=== PATIENT | male | born 1980 | race Caucasian/White ===

== ENCOUNTER 2018-07-24 16:53 | Emergency (ER) | payer BC, OTHER ==
[2018-07-24 17:01] VITALS: BP 118/73
--- NOTE | 2018-07-24 18:00 | UC ---
Skin Complaint HPI - HPI Summary HPI Summary: While working at his [employer] house today his brother noticed a bull's-eye rash on his back. Came here to have it evaluated. No fever, headache, joint pain or muscle aches. [place] and has removed several ticks over the summer. - History of Current Complaint Chief Complaint: UCSkin Time Seen by Provider: 07/24/18 17:43 Stated Complaint: RASH Hx Obtained From: Patient Onset/Duration: Still Present Timing: Constant Onset Severity: Mild Current Severity: Mild Pain Intensity: 0 Pain Scale Used: 0-10 Numeric Location: Discrete - BACK Character: Redness Aggravating Factor(s): Nothing Alleviating Factor(s): Nothing Associated Signs & Symptoms: Positive: Rash. Negative: Nausea, Fever, Chills, Throat Tightening, Bruising, Tenderness, Red Streaks - Allergy/Home Medications Allergies/Adverse Reactions: Allergies Allergy/AdvReac Type Severity Reaction Status Date / Time No Known Allergies Allergy Verified 07/24/18 17:02 Review of Systems Constitutional: Negative Skin: Rash Respiratory: Negative Cardiovascular: Negative Gastrointestinal: Negative Musculoskeletal: Negative All Other Systems Reviewed And Are Negative: Yes PMH/Surg Hx/FS Hx/Imm Hx Previously Healthy: Yes - Surgical History Surgical History: None - Family History Known Family History: Negative: Hypertension - Social History Alcohol Use: Occasionally Substance Use Type: None Smoking Status (MU): Never Smoked Tobacco Physical Exam Triage Information Reviewed: Yes Appearance: Well-Appearing, No Pain Distress, Well-Nourished Vital Signs: Initial Vital Signs Temp 98.1 F 07/24/18 16:59 Pulse 97 07/24/18 16:59 Resp 12 07/24/18 16:59 BP 118/73 07/24/18 16:59 Pulse Ox 100 07/24/18 16:59 Vital Signs Reviewed: Yes Eyes: Positive: Conjunctiva Clear ENT: Positive: Hearing grossly normal Neck: Positive: Supple Respiratory: Positive: No respiratory distress, No accessory muscle use Cardiovascular: Positive: Pulses Normal Abdomen Description: Positive: Soft Musculoskeletal: Positive: No Edema Neurological: Positive: Alert Psychological: Positive: Age Appropriate Behavior Skin: Positive: rashes - 5 INCH DIAMETER TARGET LESION X 2 ON BACK. NON TENDER Course/Dx - Diagnoses Provider Diagnoses: ERYTHEMA MIGRANS Discharge - Sign-Out/Discharge Documenting (check all that apply): Patient Departure All imaging exams completed and their final reports reviewed: No Studies - Discharge Plan Condition: Stable Disposition: HOME Prescriptions: Doxycycline Monohydrate 1 cap PO BID #40 cap Patient Education Materials: Lyme Disease (ED) Referrals: Richardson JAIME,Isak Parker [Medical Doctor] - (FOLLOW-UP IN 3-4 WEEKS) Additional Instructions: LYME DISEASE: You are suspected of having Lyme disease. Further testing may be necessary to confirm the diagnosis. Lyme disease is an infection spread through the bite of a deer tick. Symptoms include rash, fever, fatigue, joint swelling, and aches. Lyme disease can be treated with antibiotics. It is important that you take the entire course of medication. Call the physician if you develop severe headache, stiff neck, paralysis or "drooping" of either side of the face, or a worsening of any other symptom. The majority of patients with early Lyme disease who receive appropriate antibiotic therapy have complete resolution of the signs and symptoms of infection within 20 days and, in one trial, erythema migrans (the rash) and its associated symptoms resolved in a mean of five to six days. Patients who are more systemically ill at the beginning of treatment may take longer to recover. Some patients have mild subjective symptoms, such as headache, musculoskeletal pain, arthralgia, or fatigue, that persist for weeks to months after treatment. These subjective findings often resolve spontaneously, usually within six months , without further antibiotic therapy; they are not due to ongoing active Lyme disease. Almost all patients who have a satisfactory response to antibiotic therapy do well over the intermediate manager. DOXYCYCLINE WILL MAKE YOU MORE SENSITIVE TO UV RAYS SO BE SURE TO TAKE EXTRA SUN PRECAUTIONS WHILE YOU ARE ON THIS MEDICATION. - Billing Disposition and Condition Condition: STABLE Disposition: Home
[2018-07-24] MEDS: DOXYcycline CAP(*) 100 MG PO ONE ×2 (18:04→18:06)
== END 2018-07-24 18:04 | disposition home or self-care (01) ==
LOC: UCEAST 16:53
DX: A26.0 Cutaneous erysipeloid (principal)
CPT/HCPCS: 99202; A9270-GY; G0463